=== PATIENT | male | born 1985 | race Caucasian/White ===

== ENCOUNTER 2017-10-22 11:06 | Day surgery (SDC) | payer OTHER ==
[~2017-10-22 11:06] MED LIST: ACET500 PO; AMOX875 PO; Augmentin 875-1 EACH PO; BISA5EC PO; CLON.2 PO; CODGUAEL PO; CYCL10 PO; Colace100 MG PO; DIPATR PO; DOCU100 PO; LAMO100 PO; METPRE4DP PO; Norco 7.5-3251 EACH PO; ONDA4ODT MM; OXYACE5T PO; PROC10 PO; Percocet 10-321 EACH PO; Percocet 5-3251 EACH PO; RANI150 PO; ROXICODONE5 MG PO
== END 2017-10-22 13:30 | disposition home or self-care (01) ==
LOC: ATC 11:06
DX: M70.22 Olecranon bursitis, left elbow (principal); E66.9 Obesity, unspecified; F31.81 Bipolar II disorder; Z87.891 Personal history of nicotine dependence; E87.6 Hypokalemia; L03.90 Cellulitis, unspecified; L02.91 Cutaneous abscess, unspecified; F19.10 Other psychoactive substance abuse, uncomplicated; A41.9 Sepsis, unspecified organism
CPT/HCPCS: 99211

== ENCOUNTER 2017-10-24 07:08 | Day surgery (SDC) | payer OTHER | END 2017-10-24 11:35 | disposition home or self-care (01) | LOC: ATC 07:08 | DX: M70.22 Olecranon bursitis, left elbow (principal); F31.81 Bipolar II disorder; E66.9 Obesity, unspecified; Z87.891 Personal history of nicotine dependence; L03.90 Cellulitis, unspecified; L02.91 Cutaneous abscess, unspecified; E87.6 Hypokalemia; F11.10 Opioid abuse, uncomplicated | CPT/HCPCS: 99211 ==

== ENCOUNTER 2017-10-29 00:37 | Day surgery (SDC) | payer OTHER | END 2017-10-29 11:36 | disposition home or self-care (01) | LOC: ATC 00:37 | DX: M70.22 Olecranon bursitis, left elbow (principal); F31.81 Bipolar II disorder; E66.9 Obesity, unspecified; Z87.891 Personal history of nicotine dependence; L03.90 Cellulitis, unspecified; L02.91 Cutaneous abscess, unspecified | CPT/HCPCS: 99211 ==

== ENCOUNTER 2017-10-31 00:20 | Day surgery (SDC) | payer OTHER | END 2017-10-31 14:22 | disposition home or self-care (01) | LOC: ATC 00:20 | DX: M70.22 Olecranon bursitis, left elbow (principal); F31.81 Bipolar II disorder; E66.9 Obesity, unspecified; Z87.891 Personal history of nicotine dependence; L03.90 Cellulitis, unspecified; L02.91 Cutaneous abscess, unspecified; F11.10 Opioid abuse, uncomplicated; E87.6 Hypokalemia | CPT/HCPCS: 99211 ==

== ENCOUNTER 2017-11-07 00:14 | Day surgery (SDC) | payer OTHER | END 2017-11-07 23:33 | disposition home or self-care (01) | LOC: ATC 00:14 | DX: M70.22 Olecranon bursitis, left elbow (principal); F31.81 Bipolar II disorder; E66.9 Obesity, unspecified; Z87.891 Personal history of nicotine dependence; L03.90 Cellulitis, unspecified; L02.91 Cutaneous abscess, unspecified; E87.6 Hypokalemia ==

== ENCOUNTER 2017-11-11 10:45 | Day surgery (SDC) | payer OTHER | END 2017-11-11 16:43 | disposition home or self-care (01) | LOC: WOUND 10:45 | DX: Z48.00 Encounter for change or removal of nonsurgical wound dressing (principal); M70.22 Olecranon bursitis, left elbow | CPT/HCPCS: G0463 ==

== ENCOUNTER 2017-11-25 11:00 | Day surgery (SDC) | payer OTHER | END 2017-11-25 11:39 | disposition home or self-care (01) | LOC: WOUND 11:00 | DX: Z48.00 Encounter for change or removal of nonsurgical wound dressing (principal); M70.22 Olecranon bursitis, left elbow | CPT/HCPCS: G0463 ==

== ENCOUNTER 2018-04-30 22:18 | Emergency (ER) | payer OTHER ==
[~2018-04-30] VITALS: Ht 180.3 cm; Wt 122.5 kg
[2018-05-01] MEDS ORDERED: CEPH500 PO (01:41)
== END 2018-05-01 02:05 | disposition home or self-care (01) ==
LOC: ER 22:18
DX: L03.116 Cellulitis of left lower limb (principal); L03.115 Cellulitis of right lower limb; Z88.2 Allergy status to sulfonamides; F31.9 Bipolar disorder, unspecified; F41.9 Anxiety disorder, unspecified; Z87.891 Personal history of nicotine dependence
CPT/HCPCS: 99283